=== PATIENT | female | born 2000 | race American Indian/Alaskan Native ===

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

== ENCOUNTER 2021-12-16 05:03 | Emergency (ER) | payer MEDICAID ==
[2021-12-16] MEDS ORDERED: HALOPERIDOL LACTATE 5 MG/1 ML INJ ONE (05:46)
[2021-12-16] MEDS ORDERED: LORazepam 2 MG/ML VIAL ONE (05:46)
[2021-12-16] MEDS ORDERED: HALOPERIDOL LACTATE 5 MG/1 ML INJ IM PRN (05:47)
[2021-12-16] MEDS ORDERED: LORazepam 2 MG/ML VIAL IM PRN (05:47)
--- NOTE | 2021-12-16 05:49 | Event Note ---
Date: 12/16/21 EMS documentation not available at time of chart dictation Verbal report received from emergency medical services. 21-year-old female reportedly brought to the hospital by EMS because of an EMS articulated complaint of paranoid behavior associated with marijuana consumption. History obtained from EMS as the patient is acutely agitated, psyc hotic, disorganized, and intoxicated. EMS reports that the patient's family called 911 because the patient reportedly consumed marijuana, and is anxious and disorganized. Patient unable to have a lucid conversation. Does not respond to verbal de-escalation techniques or show of force. Does not exhibit decision- making capacity. 1013 ordered. Requires medication with haloperidol and Ativan. Laboratory studies and psychiatric consultation requested. Detailed history and physical to be performed by oncoming ER provider
[2021-12-16 06:25] LABS: Amphetamine Screen,Urine Negative; Benzodiazepines Screen,Urine Negative; Bilirubin,Urine NEG (Negative); Blood,Urine NEG (Negative); Cocaine Screen,Urine Negative; Color,Urine Yellow (Yellow); Hyaline Casts,Urine 4 /LPF; Methadone Screen,Urine Negative; Mucus,Urine 3+ /HPF; Opiate Screen,Urine Negative; Urobilinogen,Urine < 2.0 mg/dL (<2.0)
[2021-12-16 06:37] LABS: Cannabinoid Screen,Urine Positive
--- NOTE | 2021-12-16 07:40 | Emergency Department Report ---
ED Psych HPI - General Chief Complaint: Psych Stated Complaint: ANXIETY/PARANOID/MARIJUANA USE Time Seen by Provider: 12/16/21 05:58 Source: patient, EMS Mode of arrival: Stretcher - History of Present Illness Initial Comments: Patient had presented with paranoia and family concern for marijuana consumption. Patient had been seen by another provider initially. Work-up was initiated. I have assumed care. At this time, patient is calm and cooperative. She is lying down and resting. She states that she is trying to keep her self calm and have a normal conversation. She states that she did think that people were after her. Right now, she states that she feels a little better. She denies being suicidal or homicidal. She has no recent cough or congestion or other illness. There has been no vomiting or diarrhea. She admits that she smoked marijuana with her brother. She does not know if it was laced with anything or not. She has smoked marijuana with him before and never had this kind of reaction. - Related Data Allergies Allergy/AdvReac Type Severity Reaction Status Date / Time No Known Allergies Allergy Verified 10/06/15 22:46 ED Review of Systems ROS: Stated complaint: ANXIETY/PARANOID/MARIJUANA USE Other details as noted in HPI Comment: All other systems reviewed and negative Constitutional: denies: fever Eyes: denies: vision change ENT: denies: throat pain Respiratory: denies: cough Cardiovascular: denies: chest pain Endocrine: denies: unexplained weight loss Gastrointestinal: denies: abdominal pain Genitourinary: denies: dysuria Musculoskeletal: denies: back pain Skin: denies: rash Neurological: denies: headache Psychiatric: as per HPI Hematological/Lymphatic: denies: easy bruising ED Past Medical Hx - Past Medical History Previous Medical History?: No - Surgical History Past Surgical History?: No - Family History Family history: no significant - Social History Smoking Status: Never Smoker Substance Use Type: Marijuana ED Physical Exam - General Limitations: No Limitations, Other (Pulse ox noted and normal) General appearance: alert, in no apparent distress - Head Head exam: Present: atraumatic, normocephalic, normal inspection - Eye Eye exam: Present: normal appearance, PERRL, EOMI. Absent: scleral icterus - ENT ENT exam: Present: normal orophraynx, normal external ear exam - Neck Neck exam: Present: normal inspection. Absent: meningismus - Respiratory Respiratory exam: Present: normal lung sounds bilaterally. Absent: respiratory distress - Cardiovascular Cardiovascular Exam: Present: normal rhythm, tachycardia - GI/Abdominal GI/Abdominal exam: Present: soft. Absent: tenderness - Extremities Exam Extremities exam: Present: normal capillary refill. Absent: pedal edema - Back Exam Back exam: Absent: CVA tenderness (R), CVA tenderness (L) - Neurological Exam Neurological exam: Present: alert, oriented X3, CN II-XII intact, normal gait. Absent: motor sensory deficit - Psychiatric Psychiatric exam: Present: normal mood, flat affect - Skin Skin exam: Present: warm, dry ED Course Vital Signs 12/16/21 12/16/21 12/16/21 05:47 05:55 06:02 Temperature 98 F Pulse Rate 109 H Respiratory 20 24 Rate Blood Pressure 122/86 Blood Pressure [Right] O2 Sat by Pulse 98 98 100 Oximetry 12/16/21 12/16/21 12/16/21 07:44 07:51 08:00 Temperature 98.8 F Pulse Rate 160 H 139 H 137 H Respiratory 16 36 H Rate Blood Pressure 130/72 Blood Pressure 112/67 [Right] O2 Sat by Pulse 98 99 Oximetry 12/16/21 12/16/21 12/16/21 08:16 08:30 08:46 Temperature Pulse Rate 133 H 89 87 Respiratory 16 20 21 Rate Blood Pressure 130/72 130/72 130/72 Blood Pressure [Right] O2 Sat by Pulse 97 100 98 Oximetry 12/16/21 12/16/21 09:00 09:16 Temperature Pulse Rate 117 H 101 H Respiratory 19 17 Rate Blood Pressure 130/72 130/72 Blood Pressure [Right] O2 Sat by Pulse 100 98 Oximetry - Reevaluation(s) Reevaluation #1: 12/16/21 07:38 Orders have been reviewed. The 1013 had been completed. Old records noted. Reevaluation #2: 12/16/21 07:51 Labs are pending. On repeat evaluation, heart rate was found to be in the 1 50- 1 60 range. Patient appears to be somewhat calm. She was placed in a room. EKG and IV fluids have been ordered. Reevaluation #3: 12/16/21 08:27 Labs have been reviewed. EKG is noted. IV fluids are infusing. Chemistry p brittny is currently pending. Reevaluation #4: 12/16/21 10:19 Patient has been cleared by psychiatric services. She is not suicidal or homicidal. There is no evidence of acute delusion. She is not responding to extraneous stimuli. She was discharged as recommended with instructions to follow-up as an outpatient. ED Medical Decision Making - Lab Data Result diagrams: 12/16/21 07:34 12/16/21 07:34 Rhythm strip: Sinus tachycardia without ectopy. Monitor observed 10 seconds. - EKG Data -: EKG Interpreted by Me - EKG Data 12/16/21 08:28 0751-EKG shows sinus tachycardia 127. Intervals are normal including a QRS of 78 and a QT corrected of 445. Patient has no ST elevation to suggest STEMI. There is no ST depression suggestive of ischemia. There is T wave flattening in aVF as well as lead V3. Patient has T wave inversion in 3. The nonspecific T wave changes appear to be no different when compared to an EKG from 2017. 12/16/21 08:29 - Medical Decision Making Patient presented secondary to marijuana use with paranoia. She had been medically cleared. She was seen by psychiatric services. At this time, she does not meet criteria for inpatient psychiatric admission. She does not require inpatient medical admission. She was safely discharged. This appeared to be a drug-induced psychosis. Critical Care Time: No Critical care attestation.: If time is entered above; I have spent that time in minutes in the direct care of this critically ill patient, excluding procedure time. 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 Drink plenty of water. Return for problems. Follow- up with your family doctor or the referral doctor for recheck and further management. OUTPATIENT MENTAL HEALTH RESOURCES [facility], [facility] Tonny Raymond MD: [address], [address] [place] [address] [place] [address] [facility]: [employer] [address] [place] [address] [place] [address] [phone] [facility]: [facility]: [address] [facility] [address] [facility] [place] [address] [facility] [id number] [facility]: Jhonny Johnson MD: [address] [facility] [address] [facility] [id number] [facility]: [address] [place] [phone] [place] CRISIS AND ACCESS LINE: In case of an emergency, please contact the following numbers: [place] Crisis and Access Line: Number: Crisis Text Line: (Text START) Number: 798203 Suicide Prevention Line: Number: Emergency Number: 911 SUBSTANCE ABUSE PROGRAMS: [facility]: Location: [place], [place] [employer]! Address: [address] [place] [address] [facility]: Address: [address] [place] [address] [facility]: Address: [address] [place] [address] [facility] Community: Address: [address] [place] [address] Medicaid Programs: [facility]: Address: [address] [place] [address] [facility]: Address: [address] [place] [address] Referrals: PRIMARY CAREMD [Primary Care Provider] - 3-5 Days NOLA LOMELI MD [Staff Physician] - 3-5 Days
[2021-12-16] MEDS ORDERED: SODIUM CHLORIDE 0.9% 1000 ML 1,000 ML IV ONE (07:51)
[2021-12-16 08:12] LABS: Basophils % (Auto) 0.3 % (0.0-1.8); Hematocrit 39.4 % (30.3-42.9); Hemoglobin 13.5 gm/dl (10.1-14.3); Lymphocytes # (Auto) 0.9 K/mm3 (1.2-5.4); Lymphocytes % (Auto) 8.5 % (13.4-35.0); Mean Corpuscular HGB Conc 34 % (30-34); Mean Corpuscular Volume 85 fl (79-97); Monocytes # (Auto) 0.7 K/mm3 (0.0-0.8); Platelet Count 225 K/mm3 (140-440); Red Blood Count 4.61 M/mm3 (3.65-5.03); Red Cell Distribution Width 15.7 % (13.2-15.2)
[2021-12-16 08:34] LABS: Blood Urea Nitrogen 10 mg/dL (7-17); Calcium 10.2 mg/dL (8.4-10.2); Hemolysis Index 5
[2021-12-16 08:35] LABS: BUN/Creatinine Ratio 14
[2021-12-16] MEDS ORDERED: ZIPRASIDONE MESYLATE 20 MG VIAL IM ONE ×2 (09:05→09:06)
--- NOTE | 2021-12-16 09:23 | Electrocardiograph Report ---
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
[2021-12-16 10:30] VITALS: BP 133/50
== END 2021-12-16 10:31 | disposition home or self-care (01) ==
LOC: ED 05:03
DX: F19.959 Other psychoactive substance use, unspecified with psychoactive substance-induced psychotic disorder, unspecified (principal); F22 Delusional disorders; Z20.822 Contact with and (suspected) exposure to COVID-19; F12.90 Cannabis use, unspecified, uncomplicated; Z79.899 Other long term (current) drug therapy
CPT/HCPCS: 36415; 80048; 80307; 81001; 84443; 84703; 85025; 87086; 93005; 96360; 96372; 99284; J1630; J2060; J7030; U0003; 80320; Q0162; G0480; J3486